=== PATIENT | female | born 1970 | race Caucasian/White ===

== ENCOUNTER → 2017-05-23 | Outpatient (CLI) | payer OTHER ==
[~2017-05-23] MED LIST: ACET-749 PO; FLUT0.15 NAE; LORA-741 PO; PLEXUS PO
--- NOTE | 2017-05-23 13:53 | MAMMOGRAPHY REPORT ---
BILATERAL DIGITAL SCREENING MAMMOGRAM TOMOSYNTHESIS WITH CAD: 05/23/2017 CLINICAL HISTORY: Routine screening. Patient has no complaints. TECHNIQUE: Breast tomosynthesis in addition to standard 2D mammography was performed. Current study was also evaluated with a Computer Aided Detection (CAD) system. COMPARISON: Comparison is made to exams dated: 05/09/2016 mammogram - [facility], mammogram, 02/17/2014 mammogram, 01/28/2013 mammogram, and 07/23/2012 mammogram. BREAST COMPOSITION: There are scattered areas of fibroglandular density in both breasts. Mild invol utional changes comparing to more remote prior mammograms. FINDINGS: No new suspicious mass, architectural distortion or cluster of microcalcifications is seen . IMPRESSION: ACR BI-RADS CATEGORY 1: NEGATIVE There is no mammographic evidence of malignancy. A 1 year screening mammogram is recommended. The pa tient will receive written notification of the results. Approximately 10% of breast cancers are not detected with mammography. A negative mammographic report should not delay biopsy if a clinically suggestive mass is present. Magaly Chery M.D. ay/:05/23/2017 08:35:13 Lineman Apprentice: Rebekah BARRIGA(Fannie)(M), [facility] letter sent: Normal 1/2 BI-RADS Code: ACR BI-RADS Category 1: Negative
== END | disposition home or self-care (01) ==
LOC: C.MAMM 07:16
PROVIDERS: ATTEND Obstetrics & Gynecology
DX: Z12.31 Encounter for screening mammogram for malignant neoplasm of breast (principal)

== ENCOUNTER → 2017-10-10 | Outpatient (CLI) | payer OTHER | END | disposition home or self-care (01) | LOC: C.LABMFLN 09:53 | PROVIDERS: ATTEND Family Medicine | DX: R35.0 Frequency of micturition (principal) ==

== ENCOUNTER → 2017-10-26 | Outpatient (CLI) | payer OTHER ==
[~2017-10-26] MED LIST changes: -ACET-749 PO; +ACET300T3 PO
== END | disposition home or self-care (01) ==
LOC: C.LABMFLN 09:26
PROVIDERS: ATTEND Obstetrics & Gynecology
DX: N95.1 Menopausal and female climacteric states (principal)

== ENCOUNTER → 2017-12-10 | Outpatient (CLI) | payer OTHER ==
[~2017-12-10] MED LIST changes: +ACET-749 PO; -ACET300T3 PO
[2017-12-10 13:19] LABS: ALBUMIN 3.7 gm/dl (3.4-5.0); BLOOD UREA NITROGEN 9 mg/dl (7-18); CALCIUM 8.5 mg/dl (8.5-10.1); CARBON DIOXIDE 26 mmol/L (21-32); CREATININE 0.95 mg/dl (0.60-1.20); GLUCOSE 95 mg/dl (70-99); POTASSIUM 3.5 mmol/L (3.5-5.1); SODIUM 138 mmol/L (136-145)
[2017-12-10 13:20] LABS: PHOSPHORUS 3.4 mg/dl (2.5-4.9)
== END | disposition home or self-care (01) ==
LOC: C.LABMFLN 07:02
PROVIDERS: ATTEND Family Medicine
DX: E87.6 Hypokalemia (principal)

== ENCOUNTER → 2018-02-05 | Outpatient (CLI) | payer OTHER ==
[2018-02-05 13:23] LABS: BASO % 0.9 %; BASO ABS # 0.05 K/uL (0-0.2); EOS % 3.5 %; EOS ABS # 0.19 K/uL (0-0.5); HEMOGLOBIN 14.9 g/dL (12.0-16.0); IG# 0.01 K/uL (0.00-0.02); LYMPH ABS # 2.12 K/uL (1.2-3.4); MEAN CELL VOLUME 93.2 fL (80-100); MEAN CORPUSCULAR HEMOGLOBIN 31.6 pg (25-34); MEAN CORPUSCULAR HGB CONC 33.9 g/dl (32-36); MEAN PLATELET VOLUME 10.9 fL (7.4-10.4); MONO % 15.1 %; MONO ABS # 0.82 K/uL (0.11-0.59); NEUT % 41.3 %; NEUT ABS # 2.24 K/uL (1.4-6.5); PLATELET COUNT 236 K/uL (130-400); RED CELL DISTRIBUTION WIDTH CV 13.2 % (11.5-14.5); RED CELL DISTRIBUTION WIDTH SD 45.2 fL (36.4-46.3); WHITE BLOOD COUNT 5.43 K/uL (4.8-10.8)
[2018-02-05 14:04] LABS: ALBUMIN 3.7 gm/dl (3.4-5.0); BLOOD UREA NITROGEN 12 mg/dl (7-18); CALCIUM 8.8 mg/dl (8.5-10.1); CARBON DIOXIDE 24 mmol/L (21-32); CREATININE 0.86 mg/dl (0.60-1.20); GLUCOSE 91 mg/dl (70-99); POTASSIUM 3.4 mmol/L (3.5-5.1); SODIUM 139 mmol/L (136-145)
[2018-02-05 14:07] LABS: CHOLESTEROL 187 mg/dl (0-200); LDL CHOLESTEROL CALCULATED 104 mg/dl; PHOSPHORUS 3.1 mg/dl (2.5-4.9)
== END | disposition home or self-care (01) ==
LOC: C.LABMFLN 07:05
PROVIDERS: ATTEND Family Medicine
DX: E87.6 Hypokalemia (principal); Z13.220 Encounter for screening for lipoid disorders

== ENCOUNTER → 2018-05-30 | Outpatient (CLI) | payer OTHER ==
[~2018-05-30] MED LIST changes: -ACET-749 PO; +ACET300T3 PO
--- NOTE | 2018-05-30 15:59 | MAMMOGRAPHY REPORT ---
BILATERAL DIGITAL SCREENING MAMMOGRAM TOMOSYNTHESIS WITH CAD: 05/30/2018 CLINICAL HISTORY: Routine screening. Patient has no complaints. TECHNIQUE: The study was acquired using full field digital technology and interpreted from soft copy. Breast tomosynthesis in addition to standard 2D mammography was performed. Current study was also ev aluated with a Computer Aided Detection (CAD) system. COMPARISON: Comparison is made to exams dated: 05/23/2017 mammogram, 05/09/2016 mammogram - [facility], 02/25/2015 mammogram, 02/17/2014 mammogram, 01/28/2013 mammogram, and 07/23/2012 mammo gram. BREAST COMPOSITION: There are scattered areas of fibroglandular density in both breasts. FINDINGS: No suspicious masses, calcifications, or areas of architectural distortion are noted in either breast . There has been no significant interval change compared to prior exams. IMPRESSION: ACR BI-RADS CATEGORY 1: NEGATIVE There is no mammographic evidence of malignancy. A 1 year screening mammogram is recommended.( [id number]) The patient will receive written notification of the results. Some breast cancers are not detected with mammography. A negative mammographic report should not abraham y biopsy if a clinically suggestive mass is present. Lesia Rosenthal M.D. ah/:05/30/2018 07:38:03 Dish Maker: RT Yanelis(Fannie)(M), [facility] letter sent: Normal 1/2 BI-RADS Code: ACR BI-RADS Category 1: Negative
== END | disposition home or self-care (01) ==
LOC: C.MAMM 07:11
PROVIDERS: ATTEND Obstetrics & Gynecology
DX: Z12.31 Encounter for screening mammogram for malignant neoplasm of breast (principal)